=== PATIENT | female | born 1965 | race African-American/Black ===

== ENCOUNTER 2017-05-06 09:06 | Inpatient (IN) | payer OTHER ==
[~2017-05-06] VITALS: Ht 162.6 cm; Wt 79.6 kg
[2017-05-06] MEDS ORDERED: ONDANSETRON HCL 4 MG/2 ML VIAL IV ONE (10:30)
[2017-05-06] MEDS ORDERED: ASPirin 81 mg TAB PO ONE (10:30)
[2017-05-06] MEDS ORDERED: MORPHINE SULFATE 10 MG/ML INJ 1ML SDV IV ONE (10:30)
[2017-05-06] MEDS ORDERED: diphenhdrAMINE HCL 50 MG/1 ML VL IV ONE (11:15)
[2017-05-06 11:17] LABS: Basophils # (auto) 0 uL; Basophils % (auto) 0.7 % (0.0-2.0); Eosinophils # (auto) 0 uL; Hemoglobin 13.8 g/dL (12.2-16.2); Lymphocytes # (auto) 2.4 uL
[2017-05-06 11:18] LABS: Eosinophils % (auto) 0.5 % (0.0-7.0); Hematocrit 40.5 % (36.0-46.0); Lymphocytes % (auto) 39.1 % (10.0-50.0); Mean Corpuscular Hemoglobin 35.3 pg (28.0-32.0); Mean Corpuscular Hgb Conc. 34.2 g/dL (32.0-36.0); Mean Corpuscular Volume 103.3 fL (80.0-100.0); Monocytes # (auto) 0.6 uL; Monocytes % (auto) 9.4 % (0.0-12.0); Neutrophils # (auto) 3.1 uL; Neutrophils % (auto) 50.3 % (37.0-80.0); Platelet Count (auto) 288 10^3/uL (140-450); Red Blood Cells 3.92 10^6/uL (4.0-5.20); Red Cell Distribution Width 14.3 % (11.8-14.3); White Blood Cell 6.1 10^3/uL (4.4-10.8)
[2017-05-06] MEDS ORDERED: LORazepam 2MG/ML-1ML VIAL IV ONE (11:30)
[2017-05-06 11:34] LABS: Alanine Aminotransferase 19 U/L (13-56); Albumin 3.9 g/dL (3.4-5.0); Alkaline Phosphatase 79 U/L (45-117); Anion Gap 9 (5-15); Aspartate Aminotransferase 14 U/L (15-37); BUN/Creatinine Ratio 5.6; Bilirubin, Total 0.5 mg/dL (0.2-1.0); Blood Urea Nitrogen 4 mg/dL (7-18); Calcium 8.8 mg/dL (8.5-10.1); Carbon Dioxide 24 mmol/L (21-32); Chloride 109 mmol/L (98-107); GFR African American 111 mL/min; GFR Non-African American 92 mL/min; Glucose 104 mg/dL (74-106); Potassium 3.6 mmol/L (3.5-5.1); Sodium 142 mmol/L (136-145); Total Protein 7.6 g/dL (6.4-8.2)
[2017-05-06 11:44] LABS: INR 0.93 (0.9-1.15); Partial Thromboplastin Time 23.7 sec (22.64-33.71); Prothrombin Time 10.1 sec (9.37-12.3)
[2017-05-06] MEDS ORDERED: MORPHINE SULFATE 10 MG/ML INJ 1ML SDV IV PRN (12:30)
[2017-05-06] MEDS ORDERED: ACETAMINOPHEN 500 MG TAB PO PRN (12:30)
[2017-05-06] MEDS ORDERED: LACTULOSE 20Gm/30ML SOLN PO PRN (12:30)
[2017-05-06] MEDS ORDERED: NITROGLYCERIN 0.4 MG SL TAB SL PRN (12:30)
[2017-05-06] MEDS ORDERED: PANTOPRAZOLE 40 MG TAB PO ONE (13:00)
[2017-05-06] MEDS ORDERED: METOPROLOL TARTRATE 25 MG TAB PO ONE (13:00)
[2017-05-06] MEDS ORDERED: NITROGLYCERIN 0.2MG/HR TOPICAL PATCH TD ONE (13:00)
[2017-05-06] MEDS ORDERED: ASPirin 81 mg TAB PO SCH (13:00)
[2017-05-06] MEDS: SODIUM CHLORIDE 0.9% 1,000 ML IV SCH ×2 (13:01→20:51)
[2017-05-06] MEDS: ENOXAPARIN SOD 40 MG/0.4 ML SYRINGE SC SCH (13:02)
[2017-05-06] MEDS: LORazepam 0.5 MG TAB PO PRN ×2 (13:09→19:11)
[2017-05-06] MEDS: HYDROcodone-ACET 5/325MG TAB PO PRN (14:09)
[2017-05-06 18:35] VITALS: BP 136/98
[2017-05-06] MEDS ORDERED: CLOP75TA28 PO (19:16)
[2017-05-06] MEDS ORDERED: RANI-226 PO (19:16)
[2017-05-06] MEDS ORDERED: OXY5T PO (19:16)
[2017-05-06] MEDS ORDERED: LORA-654 PO (19:16)
[2017-05-06] MEDS: ATORVASTATIN 20 MG TAB PO SCH (20:51)
[2017-05-06] MEDS: PROMETHAZINE HCL 25 MG/ML 1ML IV PRN (20:51)
[2017-05-06] MEDS: TEMAZEPAM 15 MG CAP PO PRN (20:52)
[2017-05-06] MEDS: MORPHINE SULFATE 10 MG/ML INJ 1ML SDV IV PRN (20:52)
[2017-05-06] MEDS ORDERED: METOPROLOL TARTRATE 25 MG TAB PO SCH (22:00)
[2017-05-06 22:25] VITALS: BP 130/81
[2017-05-07] MEDS: MORPHINE SULFATE 10 MG/ML INJ 1ML SDV IV PRN ×5 (02:21→20:25)
[2017-05-07] MEDS: PROMETHAZINE HCL 25 MG/ML 1ML IV PRN ×3 (02:21→20:25)
[2017-05-07 04:50] VITALS: BP 108/62
[2017-05-07] MEDS: LORazepam 0.5 MG TAB PO PRN ×3 (05:34→17:49)
[2017-05-07] MEDS ORDERED: IOHEXOL 350 MG/ML 100ML IJ ONE (07:32)
[2017-05-07] MEDS ORDERED: LIDOCAINE 2%HCL (LOCAL ANESTH.) INJ 20ML MDV ONE (07:32)
[2017-05-07 07:35] LABS: Cholesterol 141 mg/dL (< 200); HDL Cholesterol 73 mg/dL (40-59); LDL Cholesterol 62 mg/dL (< 100); Triglycerides 78 mg/dL (< 150)
[2017-05-07 09:00] VITALS: BP 101/64
[2017-05-07] MEDS: PANTOPRAZOLE 40 MG TAB PO SCH (09:39)
[2017-05-07] MEDS: ASPirin 81 mg TAB PO SCH (09:39)
[2017-05-07] MEDS: HYDROcodone-ACET 5/325MG TAB PO PRN ×2 (09:39→17:49)
[2017-05-07] MEDS ORDERED: NITROGLYCERIN 0.2MG/HR TOPICAL PATCH TD SCH (10:00)
[2017-05-07] MEDS ORDERED: ANGIOMAX 250 MG VIAL IV ONE (12:55)
[2017-05-07] MEDS ORDERED: fentaNYL CITRATE 100 MCG/2 ML VL ONE (12:55)
[2017-05-07] MEDS ORDERED: MIDAZOLAM HCL 1MG/1ML-2 ML VIAL ONE (12:56)
[2017-05-07] MEDS ORDERED: SODIUM CHL 0.9% 0 ML ONE (12:56)
[2017-05-07] MEDS: ENOXAPARIN SOD 40 MG/0.4 ML SYRINGE SC SCH (13:00)
[2017-05-07] MEDS: SODIUM CHLORIDE 0.9% 1,000 ML IV SCH ×2 (15:47→20:26)
[2017-05-07 15:58] VITALS: BP 136/98
[2017-05-07 17:00] VITALS: BP 132/79
[2017-05-07] MEDS: ATORVASTATIN 20 MG TAB PO SCH (20:25)
[2017-05-07] MEDS: TEMAZEPAM 15 MG CAP PO PRN (20:25)
[2017-05-07 22:00] VITALS: BP 112/65
[2017-05-08] MEDS: MORPHINE SULFATE 10 MG/ML INJ 1ML SDV IV PRN ×6 (01:40→23:10)
[2017-05-08] MEDS: PROMETHAZINE HCL 25 MG/ML 1ML IV PRN ×2 (01:41→06:07)
[2017-05-08 05:00] VITALS: BP 115/72
[2017-05-08] MEDS: LORazepam 0.5 MG TAB PO PRN ×3 (07:44→20:27)
[2017-05-08] MEDS: HYDROcodone-ACET 5/325MG TAB PO PRN ×2 (07:46→20:26)
[2017-05-08 08:00] VITALS: BP 114/69
[2017-05-08] MEDS: PANTOPRAZOLE 40 MG TAB PO SCH (09:57)
[2017-05-08] MEDS: ASPirin 81 mg TAB PO SCH (09:58)
[2017-05-08 12:00] VITALS: BP_SYST 114; BP_SYST 118; BP_DIAS 66; BP_DIAS 69
[2017-05-08 17:00] VITALS: BP 129/69
[2017-05-08] MEDS: SODIUM CHLORIDE 0.9% 1,000 ML IV SCH (17:42)
[2017-05-08] MEDS: CLOPIDOGREL BISULFATE 75 MG TAB PO SCH (18:55)
[2017-05-08] MEDS: ATORVASTATIN 20 MG TAB PO SCH (21:26)
[2017-05-08] MEDS: TEMAZEPAM 15 MG CAP PO PRN (21:27)
[2017-05-08 21:57] VITALS: BP 145/88
[2017-05-09] MEDS: LORazepam 0.5 MG TAB PO PRN ×3 (04:31→18:14)
[2017-05-09] MEDS: MORPHINE SULFATE 10 MG/ML INJ 1ML SDV IV PRN ×2 (04:32→12:40)
[2017-05-09 04:58] VITALS: BP 142/95
[2017-05-09] MEDS: HYDROcodone-ACET 5/325MG TAB PO PRN ×3 (06:27→22:00)
[2017-05-09] MEDS: SODIUM CHLORIDE 0.9% 1,000 ML IV SCH ×2 (07:02→23:17)
[2017-05-09 08:00] VITALS: BP 131/75
[2017-05-09 09:00] VITALS: BP 131/75
[2017-05-09] MEDS: PANTOPRAZOLE 40 MG TAB PO SCH (10:35)
[2017-05-09] MEDS: CLOPIDOGREL BISULFATE 75 MG TAB PO SCH (10:36)
[2017-05-09] MEDS: ASPirin 81 mg TAB PO SCH (10:36)
[2017-05-09 13:00] VITALS: BP 140/83
[2017-05-09 17:00] VITALS: BP 142/68
[2017-05-09] MEDS: OXYCODONE HCL 5MG TAB PO PRN (18:14)
[2017-05-09] MEDS: ATORVASTATIN 20 MG TAB PO SCH (21:52)
[2017-05-09] MEDS: TEMAZEPAM 15 MG CAP PO PRN (21:54)
[2017-05-09 22:00] VITALS: BP 123/70
[2017-05-10] MEDS ORDERED: diphenhdrAMINE HCL 50 MG/1 ML VL IV ONE (00:15)
[2017-05-10] MEDS: OXYCODONE HCL 5MG TAB PO PRN ×3 (01:47→14:07)
[2017-05-10] MEDS: LORazepam 0.5 MG TAB PO PRN ×3 (01:47→14:07)
[2017-05-10] MEDS: HYDROcodone-ACET 5/325MG TAB PO PRN (04:51)
[2017-05-10 04:54] VITALS: BP 146/83
[2017-05-10 06:03] LABS: Basophils # (auto) 0 uL; Eosinophils # (auto) 0.1 uL; Hemoglobin 11.2 g/dL (12.2-16.2); Red Cell Distribution Width 14.6 % (11.8-14.3)
[2017-05-10 06:07] LABS: Basophils % (auto) 0.5 % (0.0-2.0); Eosinophils % (auto) 2.2 % (0.0-7.0); Hematocrit 33.1 % (36.0-46.0); Lymphocytes # (auto) 1.8 uL; Lymphocytes % (auto) 36.8 % (10.0-50.0); Mean Corpuscular Hemoglobin 35.8 pg (28.0-32.0); Mean Corpuscular Hgb Conc. 33.8 g/dL (32.0-36.0); Monocytes # (auto) 0.3 uL; Neutrophils # (auto) 2.7 uL; Neutrophils % (auto) 53.5 % (37.0-80.0); Nucleated Red Blood Cells % 0.1 %; Platelet Count (auto) 216 10^3/uL (140-450); Red Blood Cells 3.13 10^6/uL (4.0-5.20)
[2017-05-10 06:43] LABS: Albumin 2.9 g/dL (3.4-5.0); BUN/Creatinine Ratio 8.6; Bilirubin, Total 0.3 mg/dL (0.2-1.0); Calcium 8.4 mg/dL (8.5-10.1); Phosphorus 2.8 mg/dL (2.5-4.90); Potassium 3.4 mmol/L (3.5-5.1); Total Protein 6.2 g/dL (6.4-8.2)
[2017-05-10 08:00] VITALS: BP 132/78
[2017-05-10] MEDS: PROMETHAZINE HCL 25 MG/ML 1ML IV PRN (08:26)
[2017-05-10] MEDS: ASPirin 81 mg TAB PO SCH (09:11)
[2017-05-10] MEDS: CLOPIDOGREL BISULFATE 75 MG TAB PO SCH (09:11)
[2017-05-10] MEDS: PANTOPRAZOLE 40 MG TAB PO SCH (09:11)
[2017-05-10] MEDS: SODIUM CHLORIDE 0.9% 1,000 ML IV SCH (09:13)
[2017-05-10 12:00] VITALS: BP 166/96
== END 2017-05-10 14:15 | disposition home or self-care (01) | DRG 206 ==
LOC: ER 09:06 → TELE 09:07 → TELE-WESTW 18:31
PROVIDERS: ADMIT Internal Medicine; ATTEND Internal Medicine
PROC: B2111ZZ Fluoroscopy of Multiple Coronary Arteries using Low Osmolar Contrast (ICD-10-PCS; principal; 2017-05-06)
PROC: 4A023N7 Measurement of Cardiac Sampling and Pressure, Left Heart, Percutaneous Approach (ICD-10-PCS; 2017-05-06)
PROC: B2151ZZ Fluoroscopy of Left Heart using Low Osmolar Contrast (ICD-10-PCS; 2017-05-06)
PROC: B41F1ZZ Fluoroscopy of Right Lower Extremity Arteries using Low Osmolar Contrast (ICD-10-PCS; 2017-05-06)
DX: M94.0 Chondrocostal junction syndrome [Tietze] (principal); G45.9 Transient cerebral ischemic attack, unspecified; M41.9 Scoliosis, unspecified; E78.5 Hyperlipidemia, unspecified; I25.10 Atherosclerotic heart disease of native coronary artery without angina pectoris; Z77.22 Contact with and (suspected) exposure to environmental tobacco smoke (acute) (chronic); F41.9 Anxiety disorder, unspecified; G89.29 Other chronic pain; I10 Essential (primary) hypertension; J44.9 Chronic obstructive pulmonary disease, unspecified; K59.00 Constipation, unspecified; G47.00 Insomnia, unspecified; F11.90 Opioid use, unspecified, uncomplicated; M79.671 Pain in right foot; M79.672 Pain in left foot; Z79.02 Long term (current) use of antithrombotics/antiplatelets; Z79.82 Long term (current) use of aspirin; Z79.899 Other long term (current) drug therapy; Z82.49 Family history of ischemic heart disease and other diseases of the circulatory system; Z83.3 Family history of diabetes mellitus; Z95.0 Presence of cardiac pacemaker; Z88.8 Allergy status to other drugs, medicaments and biological substances; Z90.49 Acquired absence of other specified parts of digestive tract; Z90.710 Acquired absence of both cervix and uterus
CPT/HCPCS: 93458; 96374; 96375; 99285; G0278; 36415; 70450; 71020; 80053; 80061; 82550; 83735; 84100; 84484; 85025; 85379; 85610; 85652; 85730; 86141; 93005; 93306; 93886; 94761; 99152; 99153; J2250; J2405